=== PATIENT | male | born 1990 | race Two or more races ===

== ENCOUNTER 2017-11-11 23:41 | Emergency (ER) | payer SELFPAY ==
[2017-11-12 00:01] VITALS: BP 121/70; PULSE 75; RESP 16; TEMP 98; O2SAT 100
--- NOTE | 2017-11-12 00:40 | ED PDOC ---
Syncope/Near Syncope/Dizziness Time Seen by Provider: 11/12/17 00:07 Chief Complaint (Nursing): Syncope Chief Complaint (Provider): Syncopal episodes History Per: Patient Additional Complaint(s): 26 yo male, PMH of Ankylosing Spondylisis, brought in by EMS for 2-3 syncopal episodes, or possible seizures. Pt is awake, alert and oriented to person and time. pupils are fixed and dialated. Pt not answering questions appropriately. Pt states "I took too many risks and became grandiose." Pt's girlfriend at bedside and admits Pt smokes weed occasionally Past Medical History Reviewed: Nursing Documentation, Vital Signs Vital Signs: Last Vital Signs Temp 98.0 F 11/11/17 23:57 Pulse 75 11/11/17 23:57 Resp 16 11/11/17 23:57 BP 121/70 11/11/17 23:57 Pulse Ox 100 11/11/17 23:57 - Medical History Other PMH: Ankylosing Spondylisis - Surgical History Surgical History: No Surg Hx - Family History Family History: States: Unknown Family Hx - Social History Current smoker - smoking cessation education provided: No Alcohol: Social Drugs: Cannabis - Allergies Allergies/Adverse Reactions: Allergies Allergy/AdvReac Type Severity Reaction Status Date / Time cefaclor [From [facility]] Allergy RASH Verified 11/12/17 00:03 Review of Systems ROS Statement: Except As Marked, All Systems Reviewed And Found Negative Neurological: Positive for: Altered Mental Status Physical Exam - Reviewed Nursing Documentation Reviewed: Yes Vital Signs Reviewed: Yes - Physical Exam Appears: Positive for: Well, Non-toxic, No Acute Distress Head Exam: Positive for: ATRAUMATIC, NORMAL INSPECTION, NORMOCEPHALIC Skin: Positive for: Normal Color, Warm, DRY Eye Exam: Positive for: EOMI. Negative for: PERRL (Pupils dialated and fixed) ENT: Positive for: Normal ENT Inspection Neck: Positive for: Normal, Painless ROM Cardiovascular/Chest: Positive for: Regular Rate, Rhythm Respiratory: Positive for: CNT, Normal Breath Sounds Gastrointestinal/Abdominal: Positive for: Normal Exam, Bowel Sounds, Soft Back: Positive for: Normal Inspection Extremity: Positive for: Normal ROM Neurologic/Psych: Positive for: Alert, Oriented - ECG O2 Sat by Pulse Oximetry: 100 Medical Decision Making Medical Decision Making: Pt will not answer if he took any drugs tonight. Orders placed; however, Caretakers presented to bedside and are requesting to take Pt home. Pt asking to go home as well, refusing all medical treatment. Case discussed with ED MD, alexandra Mercedes agreed Pt can be discharge into caretakers care. Disposition - Clinical Impression Clinical Impression: Syncope, Substance abuse - Patient ED Disposition Is Patient to be Admitted: No - Disposition Disposition: Routine/Home Disposition Time: 00:56 Condition: STABLE - POA Present On Arrival: None
== END 2017-11-12 00:45 | disposition home or self-care (01) ==
LOC: H.ER 23:41
DX: R55 Syncope and collapse (principal); F19.10 Other psychoactive substance abuse, uncomplicated